=== PATIENT | male | born 1950 | race Caucasian/White ===

== ENCOUNTER → 2016-08-19 | Outpatient (CLI) | payer MEDICARE ==
[~2016-08-19] MED LIST: ATOR20TA15; BAYE2MIS; CHLO25TA2; FENT50DI; GLIP5TAB8; LISI10TA3; MELO-1; METF500T4; ROSU1TAB4; TRAD5TAB; VALA500T; VIAG100T
== END ==
LOC: CLAB 11:25
PROVIDERS: ATTEND Specialist
DX: B18.2 Chronic viral hepatitis C (principal); R94.5 Abnormal results of liver function studies; I10 Essential (primary) hypertension; E78.2 Mixed hyperlipidemia; I69.820 Aphasia following other cerebrovascular disease; E11.40 Type 2 diabetes mellitus with diabetic neuropathy, unspecified; Z79.899 Other long term (current) drug therapy; Z20.2 Contact with and (suspected) exposure to infections with a predominantly sexual mode of transmission
CPT/HCPCS: 36415; 82140

== ENCOUNTER → 2017-05-13 | Outpatient (CLI) | payer MEDICARE ==
[~2017-05-13] MED LIST changes: -MELO-1; +MELO15TA20
== END ==
LOC: CLAB 10:15
PROVIDERS: ATTEND Specialist
DX: E78.2 Mixed hyperlipidemia (principal); M54.17 Radiculopathy, lumbosacral region; I10 Essential (primary) hypertension; B18.2 Chronic viral hepatitis C; E11.40 Type 2 diabetes mellitus with diabetic neuropathy, unspecified; Z79.899 Other long term (current) drug therapy
CPT/HCPCS: 36415; 82140

== ENCOUNTER → 2017-09-09 | Outpatient (CLI) | payer MEDICARE | LOC: CLAB 10:20 | PROVIDERS: ATTEND Specialist | DX: E78.2 Mixed hyperlipidemia (principal); E08.22 Diabetes mellitus due to underlying condition with diabetic chronic kidney disease; R73.09 Other abnormal glucose; B18.2 Chronic viral hepatitis C; Z79.899 Other long term (current) drug therapy | CPT/HCPCS: 36415; 82140 ==